=== PATIENT | male | born 1960 | race Caucasian/White ===

== ENCOUNTER 2016-04-18 17:23 | Emergency (ER) | payer SELFPAY ==
[~2016-04-18] VITALS: Ht 185.4 cm; Wt 94.0 kg
[~2016-04-18 17:23] MED LIST: GUAI118L22 PO; IBUP-1542 PO
[2016-04-18 17:46] VITALS: Ht 185.4 cm; Wt 94.0 kg
[2016-04-18 20:55] VITALS: BP 112/62; PULSE 77; RESP 19
[2016-04-18] MEDS ORDERED: AZIT250T94 PO (20:55)
[2016-04-18] MEDS ORDERED: IBUP-1542 PO (20:55)
--- NOTE | 2016-04-18 21:06 | ERD ---
ER Documentation Chief Complaint Date/Time DATE: 04/18/16 TIME: 20:59 Chief Complaint weakness and bodyaches HPI This 55-year-old male who presents to the emergency department today complaining of "not feeling right" the past 3 weeks. Patient states he has had some body aches and fatigue. States that early on he had a fever and a cough and has some residual cough. States "my lungs feel inflamed". Denies any nausea vomiting diarrhea, headache, dizziness or blurred vision. He has not taken any medication. ROS All systems reviewed and are negative except as per history of present illness. Medications Home Meds Active Scripts Ibuprofen* (Motrin*) 600 Mg Tab, 600 MG PO Q6, #30 TAB Prov:YADIRA BAJWA PA-C 04/18/16 Azithromycin* (Zithromax*) 250 Mg Tablet, 250 MG PO .ZPACK DIRECTED, #6 TAB TAKE 500 MG (2 TABS) THE FIRST DAY THEN 250 MG (1 TAB) DAYS 2-5 Prov:YADIRA BAJWA PA-C 04/18/16 Ibuprofen* (Motrin*) 600 Mg Tab, 600 MG PO Q6 for FEVER for 10 Days, TAB Prov:BJ HUNTER NP 04/26/15 Guaifenesin/Codeine Phosphate (CHERATUSSIN AC SYRUP) 118 Ml Liquid, 10 ML PO Q6 for COUGH for 5 Days Prov:BJ HUNTER NP 04/26/15 Allergies Allergies: Coded Allergies: No Known Allergy (Unverified , 07/22/14) PMhx/Soc Medical and Surgical Hx: pt denies Medical Hx, pt denies Surgical Hx Hx Alcohol Use: No Hx Substance Use: No Hx Tobacco Use: No Physical Exam Vitals Vital Signs Date Time Temp Pulse Resp B/P Pulse Ox O2 Delivery O2 Flow Rate FiO2 04/18/16 17:46 97.7 72 18 126/95 98 Physical Exam Const: No acute distress Head: Atraumatic Eyes: Normal Conjunctiva ENT: Ears TMs normal. Nose no drainage. Throat no erythema no exudate. Neck: Full range of motion..~ No meningismus. Resp: Clear to auscultation bilaterally. No absent breath sounds. No wheezing. Cardio: Regular rate and rhythm, no murmurs Abd: Soft, non tender, non distended. Normal bowel sounds Skin: No petechiae or rashes Back: No midline or flank tenderness Ext: No cyanosis, or edema Neur: Awake and alert Psych: Normal Mood and Affect Procedures/MDM This is a A 55-year-old male who presents to the emergency department today complaining that he has felt sick for the past 3 weeks with body aches and fatigue and he initially had a fever and cough. States my lungs feel inflamed". States " I have been around people at work with cancer and when I'm around them I get a runny nose. I think my body is sensitive". States "I am a little bit of a hypochondriac". Physical exam is benign. His vitals are all stable and within normal limits. I do not feel the patient requires laboratory work or imaging at this time. Patient was complaining that he does have a residual cough and therefore did give him azithromycin to treat his chronic cough or possible bronchitis.. Patient was requesting penicillin because " I think it kills lots of things in the body". Patient admitted to being a hypochondriac however he does not take medication and does not see a practitioner for this. I have explained to the patient that I do not feel that his physical exam and vital signs require laboratory work or imaging at this time and patient was satisfied with receiving an azithromycin prescription. I also explained to the patient that he could not get cancer from being next to his coworkers. Low suspicion for sepsis, deep space infection, serious bacterial infection. Patient was also given a prescription for Motrin. At this time the patient is stable for discharge and outpatient management. Patient should follow up with their PCP in the next 1-2 days. They may return to the emergency department sooner for any persistent or worsening of symptoms. Patient understood and agreed with the plan. I discussed the case with Dr. Pool and he is in agreement with the plan. Departure Diagnosis: Primary Impression: URI (upper respiratory infection) URI type: unspecified URI Qualified Code: J06.9 - Upper respiratory tract infection, unspecified type Condition: Fair Patient Instructions: Preventing Common Respiratory Infections Referrals: COMMUNITY CLINICS YOU HAVE RECEIVED A MEDICAL SCREENING EXAM AND THE RESULTS INDICATE THAT YOU DO NOT HAVE A CONDITION THAT REQUIRES URGENT TREATMENT IN THE EMERGENCY DEPARTMENT. FURTHER EVALUATION AND TREATMENT OF YOUR CONDITION CAN WAIT UNTIL YOU ARE SEEN IN YOUR DOCTORS OFFICE WITHIN THE NEXT 1-2 DAYS. IT IS YOUR RESPONSIBILITY TO MAKE AN APPOINTMENT FOR FOLOW-UP CARE. IF YOU HAVE A PRIMARY DOCTOR --you should call your primary doctor and schedule an appointment IF YOU DO NOT HAVE A PRIMARY DOCTOR YOU CAN CALL OUR PHYSICIAN REFERRAL HOTLINE AT IF YOU CAN NOT AFFORD TO SEE A PHYSICIAN YOU CAN CHOSE FROM THE FOLLOWING FORMERLY [facility] [address] [facility] [address] [facility] [facility] [address] [facility] [address] [facility] [address] [facility] [facility] [address] Additional Instructions: Call your primary care doctor TOMORROW for an appointment during the next 1-2 days.See the doctor sooner or return here if your condition worsens before your appointment time. Make an appointment with a primary care physician Take antibiotics as prescribed Motrin for pain YADIRA BAJWA PA-C Apr 18, 2016 21:06
== END 2016-04-18 20:55 | disposition home or self-care (01) ==
LOC: FTE 17:23
DX: J06.9 Acute upper respiratory infection, unspecified (principal)
CPT/HCPCS: 99283

== ENCOUNTER 2017-01-26 23:47 | Emergency (ER) | payer SELFPAY ==
[~2017-01-26] VITALS: Ht 177.8 cm; Wt 93.0 kg
[~2017-01-26 23:47] MED LIST changes: +AZIT250T94 PO
[2017-01-26 23:49] VITALS: Ht 177.8 cm; Wt 93.0 kg
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
--- NOTE | 2017-01-27 02:35 | RADRPT ---
PROCEDURE: CT head, without contrast. CLINICAL INDICATION: Head injury. TECHNIQUE: Noncontrast CT examination of the head, with axial, sagittal and coronal reformatted im ages. Automated dose exposure control was employed. CTDI: 44.46 and DLP: 810.25 COMPARISON: None. FINDINGS: No acute hemorrhage. Subarachnoid spaces are substantially preserved and symmetric. Ventricles ar e unremarkable. No mass effect. Gay-white matter distinction is preserved without evident decreased attenuation t o suggest acute or recent infarct. Sinuses and osseous structures are unremarkable. IMPRESSION: No acute process in the head. RPTAT: [facility] Physician Nigel Date Time Electronically viewed and signed by Physician Nigel on 01/27/2017 02:34 RS/
--- NOTE | 2017-01-27 02:39 | RADRPT ---
PROCEDURE: CT Cervical Spine. CLINICAL INDICATION: Neck pain. Head injury. TECHNIQUE: A CT of the cervical spine was performed utilizing thin section axial images from the skull base through the thoracic inlet. Sagittal and coronal reformatted images were made. The CTDI vol is 22.36 mGy and the DLP is 601.99 mGycm. COMPARISON: None. FINDINGS: There is a normal lordosis of the cervical spine. No vertebral body subluxation is seen. No fractu res are evident. The posterior elements are normally aligned. Posterior facet degenerative changes are seen, greater in the bilateral mid cervical spine. The surrounding soft tissues are normal in ap pearance. Mild disc space narrowing at the C6-7 level. Otherwise, the intervertebral discs are norm al in height. No significant disk bulge or protrusion is seen. The central canal and foramina are adequately patent at all levels. IMPRESSION: Posterior facet degenerative changes, without acute fracture. RPTAT: [facility] Physician Nigel Date Time Electronically viewed and signed by Physician Nigel on 01/27/2017 02:38 BRET/
[2017-01-27] MEDS ORDERED: ACET500C5 PO (03:20)
[2017-01-27] MEDS ORDERED: HYDR-906 PO (03:20)
[2017-01-27] MEDS ORDERED: CYCL-319 PO (03:20)
== END 2017-01-27 03:30 | disposition home or self-care (01) ==
LOC: FTE 23:47
DX: S16.1XXA Strain of muscle, fascia and tendon at neck level, initial encounter (principal); S00.03XA Contusion of scalp, initial encounter; V49.40XA Driver injured in collision with unspecified motor vehicles in traffic accident, initial encounter
CPT/HCPCS: 70450; 72125

== ENCOUNTER 2017-09-18 18:21 | Emergency (ER) | END 2017-09-18 19:23 | disposition home or self-care (01) ==

== ENCOUNTER 2017-09-24 17:07 | Emergency (ER) | END 2017-09-24 19:06 | disposition home or self-care (01) ==